=== PATIENT | female | born 1985 | race Caucasian/White ===

== ENCOUNTER 2016-10-16 12:03 | Emergency (ER) | payer MEDICAID ==
[~2016-10-16] VITALS: Ht 162.5 cm; Wt 61.2 kg
[2016-10-16] MEDS ORDERED: ROBITUSSIN AC 110 ML PO (14:56)
== END 2016-10-16 15:07 | disposition home or self-care (01) ==
LOC: ED 12:03
DX: J06.9 Acute upper respiratory infection, unspecified (principal); J20.9 Acute bronchitis, unspecified; F17.200 Nicotine dependence, unspecified, uncomplicated

== ENCOUNTER 2017-04-03 14:29 | Emergency (ER) | payer OTHER ==
[~2017-04-03] VITALS: Ht 162.5 cm; Wt 63.5 kg
[~2017-04-03 14:29] MED LIST: ROBITUSSIN AC 110 ML PO
[2017-04-03 15:40] LABS: BASO % 0.3 % (0.0-1.0); EOS # 0.1 10*3/uL (0.0-0.4); EOS % 0.4 % (1.0-4.0); HEMATOCRIT 40.9 % (37.0-47.0); HEMOGLOBIN 13.5 g/dl (12.0-16.0); LYMPH # 1.5 10*3/uL (1.3-4.4); LYMPH % 12.7 % (27.0-41.0); MEAN CELL VOLUME 88.9 fl (81.0-99.0); MEAN CORPUSCULAR HGB 29.3 pg (27.0-31.0); MEAN PLATELET VOLUME 11.8 fl (9.6-12.3); MONO # 0.7 10*3/uL (0.1-1.0); MONO % 5.5 % (3.0-9.0); NEUT # 9.5 10*3/uL (2.3-7.9); NEUT % 80.8 % (47.0-73.0); PLATELET COUNT AUTOMATED 229 10*3/uL (130-400); RED CELL DISTRI WIDTH 12.7 % (0-14.5); WHITE BLOOD COUNT 11.8 10*3/uL (4.8-10.8)
[2017-04-03 15:57] LABS: ALKALINE PHOSPHATASE 83 U/L (45-117); BUN 12 mg/dl (7-24); CHLORIDE 102 mmol/L (98-107); CREATININE 0.63 mg/dL (0.55-1.02); POTASSIUM 4.4 mmol/L (3.5-5.1); SGOT/AST 68 IU/L (3-35); SGPT/ALT 130 U/L (12-78); SODIUM 135 mmol/L (136-145)
[2017-04-03] MEDS ORDERED: MIRALAX POWDER17 G1 PO (18:17)
== END 2017-04-03 18:20 | disposition home or self-care (01) ==
LOC: ED 14:29
PROVIDERS: Physician Assistant
DX: K59.00 Constipation, unspecified (principal); R11.2 Nausea with vomiting, unspecified; F17.200 Nicotine dependence, unspecified, uncomplicated